=== PATIENT | female | born 1985 | race Caucasian/White ===

== ENCOUNTER → 2020-12-12 10:10 | Outpatient (CLI) | payer BC, SELFPAY ==
[2020-12-12 13:53] LABS: Hemoglobin A1c 5.2 % (3.8-5.6)
[2020-12-12 14:04] LABS: Estradiol 48.4 pg/mL; Follicle Stimulating Hormone 6.3 mIU/mL; Luteinizing Hormone 13.1 mIU/mL; Prolactin 4.2 ng/mL; T4 Free Direct 0.98 ng/dL (0.76-1.46); Thyroid Stim Hormone (TSH) 0.93 uIU/mL (0.358-3.74)
[2020-12-18 10:50] LABS: HPV APTIMA, High Risk Negative (Negative)
[2020-12-18 14:02] LABS: Testosterone Free 3.2 pg/mL (0.0-4.2)
[2020-12-22 10:48] LABS: 17-Hydroxyprogesterone 71 ng/dL (.)
== END ==
PROVIDERS: Visit Provider Student in an Organized Health Care Education/Training Program
DX: Z12.4 Encounter for screening for malignant neoplasm of cervix (principal); N92.6 Irregular menstruation, unspecified
CPT/HCPCS: 36415; 82627; 82670; 83001; 83002; 83036; 83498; 84146; 84402; 84439; 84443; 87624; 88175; 82626; G0145

== ENCOUNTER → 2021-01-13 09:40 | Outpatient (CLI) | payer BC, SELFPAY | PROVIDERS: Visit Provider Student in an Organized Health Care Education/Training Program | DX: E28.1 Androgen excess (principal) | CPT/HCPCS: 36415; 82627; 82626 ==

== ENCOUNTER 2024-04-27 08:30 | Day surgery (SDC) | payer BC, SELFPAY ==
--- NOTE | 2024-04-23 14:38 | PCM.HP.BLA ---
History and Physical Date of Admission: 04/27/24 HPI: The patient is a 39 year old female presenting for pre-operative visit. She is scheduled for Hysteroscopy D&C and polyp resection and IUD insertion, for AUB and endometrial polyp on 04/27/24. Procedure discussed along with risks, benefits and complications. Other alternatives discussed for management. Consent form signed? Yes. PAST MEDICAL HISTORY PAST MEDICAL HISTORY Diagnosis Date ? PCOS (polycystic ovarian syndrome) PAST SURGICAL HISTORY PAST SURGICAL HISTORY Procedure Laterality Date ? ABDOMINAL SURGERY HX ? SECTION HX 2004, 2006 and 2008 ? EGD 12/27/2022 ? EXC TUMOR SOFT TISS NECK/THORAX SUBFASCIAL <5CM 12/31/2021 ? ORTHOPEDIC SURGERY HX Left childhood surgery on the left arm CURRENT MEDICATIONS Current Outpatient Medications Medication Sig Dispense Refill ? buPROPion SR (WELLBUTRIN SR) 150 mg 12 hr tablet Take 1 tablet by mouth two times a day. 60 tablet 2 ? metFORMIN (GLUCOPHAGE) 1,000 mg tablet Take 1 tablet by mouth two times a day with meals. 60 tablet 3 ? medroxyPROGESTERone (PROVERA) 10 mg tablet Take 1 tablet by mouth once daily. 10 tablet 0 ? miSOPROStol (CYTOTEC) 200 mcg tablet insert 2 tablets qhs the am before the procedure 2 tablet 0 ? Cholecalciferol, Vitamin D3, 50 mcg (2,000 unit) cap Take 1 capsule by mouth once daily. 90 capsule 2 ? ferrous sulfate 325 mg (65 mg iron) tablet Take 1 tablet by mouth every other day. 90 tablet 1 No current facility-administered medications for this visit. ALLERGIES: Patient has no known allergies. PERSONAL HISTORY: SOCIAL HISTORY Social History Tobacco Use ? Smoking status: Former Packs/day: 0.50 Years: 2.00 Additional pack years: 0.00 Total pack years: 1.00 Types: Cigarettes ? Smokeless tobacco: Never Vaping Use ? Vaping Use: Never used Substance Use Topics ? Alcohol use: Yes Comment: rare ? Drug use: Never FAMILY HISTORY: FAMILY HISTORY FAMILY HISTORY Problem Relation Age of Onset ? No Known Problems Mother ? No Known Problems Father ? Cancer Maternal Grandmother Stomach ? Cancer Maternal Grandfather Stomach REVIEW OF SYMPTOMS: GENERAL: denies fevers or chills ENDOCRINOLOGY: has not been on steroids Cardiology : denies palpitations or chest pain Respiratory: denies SOB or cough Hematology: denies history of prolonged bleeding or easy bruising or VTE Allergy: Denies history of personal or family history of allergy to anesthesia PHYSICAL EXAMINATION: VITALS: Last menstrual period 11/07/2023. GENERAL: The patient is well nourished, well hydrated in no acute distress. , The patient is oriented to time, place, and person. pelvic US 03/27/24 Uterus Uterus: Visualized Uterus position: anteverted Description of uterine malformations: none Myometrium: heterogeneous Endometrium: possible polyp Cervix details: normal Uterus length 98 mm Uterus width 67 mm Uterus height 49 mm Uterus Vol 166.8 cm? Endometrial thickness, total 6.6 mm Uterine fibroid D1 7 mm Uterine fibroid D2 6 mm Uterine fibroid D3 8 mm Uterine fibroid mean 7.0 mm Uterine fibroid vol 0.178 cm? Uterine fibroids findings: Left lateral posterior wall. intramural Polyps: Polyps identified Uterine polyp D1 4 mm Uterine polyp D2 4 mm Uterine polyp D3 3 mm Uterine polyp mean 3.7 mm Uterine polyp findings: Right lateral wall Right Ovary Rt ovary: Visualized Rt ovary morphology: premenopausal normal follicular Rt ovary D1 40 mm Rt ovary D2 20 mm Rt ovary D3 26 mm Rt ovary Vol 11.0 cm? Rt ovarian cyst(s): No cysts identified Left Ovary Lt ovary: Visualized Lt ovary morphology: premenopausal normal follicular Lt ovary D1 40 mm Lt ovary D2 21 mm Lt ovary D3 25 mm Lt ovary Vol 11.1 cm? Lt ovarian cyst(s): No cysts identified Cul de Sac Visualized. no free fluid visualized IMPRESSION: endometrial polyp, AUB, adenomyosis, IUD inertion PLAN: The risks/benefits/alternatives and personal involved for the planned hysteroscopy D&C with IUD insertion and polyp resection were reviewed with the patient. Her questions were answered to her satisfaction and she desires to proceed. Consent was signed. I reviewed with her postop instructions and expectations. I have reviewed and updated past medical and surgical history, medications and allergies Assessment & Plan Assessment/Plan (1) Abnormal uterine bleeding (AUB): (2) Endometrial polyp: (3) Adenomyosis: (4) Encounter for IUD insertion:
[2024-04-27] VITALS (7 sets, daily range): BP systolic 102–116; BP diastolic 54–71; PULSE 80–100; RESP 16–18; TEMP 36.2–36.4; O2SAT 93–98; BMI 38.0
--- NOTE | 2024-04-27 08:40 | PCM.PRE.AN2 ---
ASA Classification* ASA Classification ASA Classification: 2 Assessment & Plan Anesthesia* Anesthesia Assessment Anesthesia Assessment: Discussed sedation and/or anesthesia options, risks, benefits, and alternatives with patient/parents/legal guardian/POA. Questions invited. The patient/parents/legal guardian/POA seems to understand and agrees to proceed with anesthesia plan. Reviewed the physical assessment, medical history, allergy history and patient home medications list prior to surgery/procedure/anesthetic and documented any changes. Performed airway and anesthesia risk assessments. 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 When Was Last Pacemaker Check QUESTION #4 FULL TEXT: You/Your Family Experience fever (hyperthermia) with Anesthesia Last Oral Intake Last Oral intake: Last Oral Intake NPO since Meds taken in AM with sips of water? Meds patient instructed to take am of surgery PONV PONV - equipment superintendent: PONV - equipment superintendent Female Yes 04/20/24 15:47 HX of Motion Sickness No 04/20/24 15:47 HX of N/V After Surgery No 04/20/24 15:47 Non-Smoker Yes 04/20/24 15:47 Duration of Surgery greater Yes 04/20/24 15:47 than 60 minutes Number of Risk Factors 3 04/20/24 15:47 PONV Score Moderate Risk 04/20/24 15:47 Height & Weight Height & Weight: Anesthesia: Height & Weight Weight: 115.212 kg 04/26/24 07:03 Respiratory Assessment Respiratory Assessment - equipment superintendent: Respiratory Tract Infection Hx - equipment superintendent Hx Respiratory Tract Infection No 04/20/24 15:47 STOP Sleep Apnea STOP Sleep Apnea - equipment superintendent: STOP Sleep Apnea - equipment superintendent Hx Hypertension No 04/20/24 15:47 Hx Sleep Apnea No 04/20/24 15:47 CPAP BIPAP Do you snore loudly (louder No 04/20/24 15:47 than talking or can be heard Do you often feel tired/ No 04/20/24 15:47 fatigued/ sleepy during daytime? Has anyone observed you stop No 04/20/24 15:47 breathing during sleep? STOP Results Negative 04/20/24 15:47 QUESTION #5 FULL TEXT : Do you snore loudly (louder than talking or can be heard through closed doors)? 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 Specify any problems Hx of Preganancy in last 3 No 04/20/24 15:47 Months Nurse Filling Out Transfusion MGRIFFITH 04/20/24 15:47 & Questions: Date: 04/20/24 04/20/24 15:47 Time: 15:49 04/20/24 15:47 Patient unable to answer at this time (ie. confused, unrespo /Reproduction History /Reproductive History - equipment superintendent: /Reproductive Hx- equipment superintendent Hx Now No 04/20/24 15:47 Gestational Age (in weeks): EDC: Hx Hx Para Hx Section SAB No 04/20/24 15:47 Active Medications Active Medications: Current Medications Generic Name Dose Route Start Last Admin Trade Name Freq PRN Reason Stop Dose Admin Acetaminophen 1,000 mg 04/27/24 09:55 Acetaminophen 500 Mg Tablet PO 04/27/24 09:56 PREOP ONE Lactated Ringer's 1,000 mls @ 15 mls/hr 04/27/24 08:45 IV .Q48H TONYA Ketorolac Tromethamine 30 mg 04/27/24 09:55 Ketorolac 30 Mg/Ml Syringe IV 04/27/24 09:56 PREOP ONE Levonorgestrel 1 each 04/27/24 09:55 Levonorgestrel Iud (Liletta) INTRA-UTER 04/27/24 09:56 X1 ONE PFSH Medical History PCOS (polycystic ovarian syndrome) Wears glasses Wears contact lenses Former smoker Home Medications ?Medication ?Instructions ?Recorded ?Last Taken ?Type bupropion HCl 150 mg tablet,12 hr 150 mg PO BID 04/18/24 Unknown History sustained-release ferrous sulfate 325 mg (65 mg 325 mg PO QODAY 04/18/24 Unknown History iron) tablet (FeroSul) metformin 1,000 mg tablet 1,000 mg PO BID 04/18/24 Unknown History Allergy/AdvReac Type Severity Reaction Status Date / Time No Known Allergies Allergy Verified 04/20/24 15:44 Surgical History History of esophagogastroduodenoscopy (EGD) History of surgery on arm History of Social History Smoking Status: Former smoker Review of Systems (Anesthesia) ROS Narrative System reviewed and no additional complaints, except as documented.
[2024-04-27 08:47] LABS: Internal QC Validated? YES +Cl - CLEAR BKGD; Pregnancy, Urine Negative Negative; Record Kit Lot#,Urine Preg HCG0000772476
[2024-04-27] MEDS: Acetaminophen 500 MG Tablet 1000 MG PO (08:49)
[2024-04-27] MEDS: Lactated Ringers 1,000 ML 15 ML IV (08:49)
[2024-04-27] MEDS: Ketorolac 30 MG/ML Syringe IV (08:50)
[2024-04-27 09:18] LABS: Hematocrit 40.2 % (37-47); Mean Corp Hgb Conc 32.3 g/dL (32-36); Mean Corpuscular Hgb 28.3 pg (27.0-32.0); Mean Corpuscular Volume 87.4 fL (81-99); Mean Platelet Vol. 9.3 fl (6.2-12.0); Platelet Count 312 K/mm3 (150-450); RBC Distribution Width SD 44.6 fl (35.1-43.9); White Blood Count 9.4 K/mm3 (4.4-11.0)
--- NOTE | 2024-04-27 09:40 | DCINST_ITS ---
Discharge Instructions Diet Discharge Diet: No restrictions Activity May resume sexual activity in: 2 weeks Lifting Restrictions: none Dressing / Incision Call your doctor if your incision/area has: Sudden Increased Bleeding and Foul Smelling Discharge Call your doctor if you observe: Fever of 101 or Higher and Using more than 1 pad per hour (for 2 hrs in a row) Follow Up Care Please Follow Up With: Tamia Francois MD When: YOu do not need a postop appointment. Call [phone] or send [employer] message to make an appointment or with any concerns. We will contact you next week with your pathology results Test Results: Test results from this visit will be discussed in further detail at your follow- up appointment, if applicable. Discharge Plan Admission Attending Provider: Tamia Francois Primary Care Provider: Dea Palomino NP Instructions Print Language: Citizen Of [place] Discharge Orders/Prescriptions Prescriptions: No Action bupropion HCl 150 mg tablet sustained-release 12 hr 150 mg PO BID ferrous sulfate [FeroSul] 325 mg (65 mg iron) tablet 325 mg PO QODAY metformin 1,000 mg tablet 1,000 mg PO BID Disposition Disposition (needs filled in before D/C Order can be placed): Home, Self Care
--- NOTE | 2024-04-27 09:45 | PCM.OPRPT ---
Problems Associated Problem List Diagnoses (1) Encounter for IUD insertion: (2) Adenomyosis: (3) Endometrial polyp: (4) Abnormal uterine bleeding (AUB): Report of Operation Date of Procedure: 04/27/24 Pre-Operative Diagnosis: adenomyosis, AUB, endometrial polyp Post-Operative Diagnosis: same Surgery/Procedure Performed:: Hysteroscopy D&C with Liletta IUD insertion Description of Surgical Findings:: Normal cervix and vagina, proliferative endometrium. No focal polypoid lesions noted in the endometrium or endocervix. Surgeon: Tamia Francois shot fireman: None Type of Anesthesia: MAC/Supplemental/Local Anesthesiologist: Sasha Melendez Special Medications: none Specimen's removed: Endometrial curetting Drains: none Estimated Blood Loss (mL): 10 Fluids Replaced: 400 Description of Procedure: The patient was taken to the OR where she was prepped and draped in dorsal lithotomy position. The weighted speculum was placed in the vagina and the anterior lip of the cervix was grasped with a single-tooth tenaculum. A paracervical block was administered with [1% lidocaine with 1-100,000 epinephrine solution]. The cervix was dilated serially with Hegar dilators. The Symphion hysteroscope was placed into the uterine cavity and the above findings were noted. Bilateral tubal ostia [were] identified. The hysteroscope was removed and a sharp curettage was done of the endometrium. The Liletta IUD was then inserted in the usual sterile fashion and the uterus sounded to 8 cm. The strings were cut to 2 cm.. The instruments were removed from the vagina. The specimen was handed off and sent to pathology. All sponge and needle counts were correct. Vaginal sweep was performed by me. The patient was awakened and taken to the recovery room in stable condition. Calculated fluid deficit : 50 cc of normal saline Grafts/Implants Used: Lilettat IUD Procedure Start Time: 09:49 Procedure Stop Time: 19:58 Complications none Admit VTE Documentation VTE Present on Admission: No VTE Mechan Device Prophylaxis: SCD's VTE Pharm Prophylaxis ordered?: No Reason prophylaxis not ordered:: Procedure Not Indicated
[2024-04-27] MEDS: Lidocaine 1% /Epi 1:100 (20ml) 20 ML Vial (09:49)
[2024-04-27] MEDS: Levonorgestrel IUD (Liletta) 1 EACH INTRA-UTER (09:50)
--- NOTE | 2024-04-27 09:55 | EMB_PTH ---
PATIENT: MICHELLE AGUILAR [place] [facility] [id number] AGE/SX: 39/F ROOM: RE04/27/[address]: Dr. Tamia Francois MD : [id number] BED: DIS: 04/27/2024 SPEC #: [id number] RECD: 04/27/24 10:50 STATUS: CAROLEE SILVERIO #: [id number] GERMAN: 04/27/24 09:[address]: Tamia Francois DEPT: SURGICAL PATHOLOGY RECD BY: Jose Martin Jameson ENTERED: 04/27/24 11:17 SP TYPE: ENDOM BX/C PATRICIA DR: Dea Palomino, YANEC Tissues: Endometrium, NOS Procedures: Surgery Specimen Level IV HEADER OPERATION: Hysteroscopy, D&C, Symphion, Lietta IUD insertion PRE-OP DIAGNOSIS: Abnormal uterine bleeding, polyp, adenomyoma, IUD TISSUE SUBMITTED: Endometrial curettings MICROSCOPIC DIAGNOSIS Endometrium, curettings: Mild disordered proliferative endometrium. FEDERICA/ 04/30/2024 MICROSCOPIC DESCRIPTION Slides are reviewed. GROSS DESCRIPTION Received in fixative is one container labeled with the patient's name and designated Endometrial curettings. The specimen consists of multiple irregular fragments of pink-hemorrhagic soft tissue mixed with mucoid tissue that in aggregate measure 5.0 x 3.0 x 0.2 cm. The specimen is totally submitted in two cassettes. ADAM/ 04/27/2024 TC:5 CPT:56834
--- NOTE | 2024-04-27 10:05 | PCM.POST.ANE ---
Anesthesia: Postop Eval I Current Vital Signs Temperature: 97.1 F Pulse Rate: 96 Blood Pressure: 107/54 Respiratory Rate: 16 Pulse Ox: 94 Oxygen Delivery Method: Room Air Assessment Airway patent: Yes Spontaneous unlabored respirations: Yes Mental status: Awake and Calm nausea: No Vomiting: No Anesthesia Complication: No Fluid Hydration Crystalloid volume administer (ml): 400 Total IV fluid infused: 400 Progress Note Anesthesia document: Postop Eval 1 completed: Yes
--- NOTE | 2024-04-27 13:04 | POSTOPAN2_ITS ---
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[place] nausea No 04/27/24 10:06 [email or web address] Vomiting No 04/27/24 10:06 ULISES Anesthesia Postop Eval I: Fluid Summary Crystalloid volume administer 400 04/27/24 10:06 ULISES (ml) Colloids volume administered ( ml) Blood Product volume administered (ml) Total IV fluid infused 400 04/27/24 10:06 ULISES Anesthesia Postop Eval I: Summary Notes Anesthesia Complication No 04/27/24 10:06 ULISES Anesthesia Complication Comment: Post-operative progress note Anesthesia: Postop Eval II Evaluation Mental status: Awake and Calm Pain Level: 1 nausea: No Vomiting: No Complications Anesthesia Complication: No
== END 2024-04-27 10:56 | disposition home or self-care (01) ==
LOC: SDC 08:35 → AC 10:05
PROVIDERS: Anesthesiology; PCP Internal Medicine; Referring Provider Obstetrics & Gynecology; Visit Provider Obstetrics & Gynecology
PROC: 0UB98ZZ Excision of Uterus, Via Natural or Artificial Opening Endoscopic (ICD-10-PCS; CPT 58558; principal; 2024-04-27 09:40)
DX: N80.03 Adenomyosis of the uterus (principal); N93.9 Abnormal uterine and vaginal bleeding, unspecified; N84.0 Polyp of corpus uteri; E28.2 Polycystic ovarian syndrome; Z87.891 Personal history of nicotine dependence; Z30.430 Encounter for insertion of intrauterine contraceptive device; Z79.84 Long term (current) use of oral hypoglycemic drugs; Z79.899 Other long term (current) drug therapy
CPT/HCPCS: 58558; 58300; 81025; 85027; 88305; J7120; J2405

== ENCOUNTER 2024-12-18 19:50 | Emergency (ER) | payer BC, SELFPAY ==
[2024-12-18 19:52] VITALS: BP 131/73; PULSE 90; RESP 18; TEMP 35.9; O2SAT 98
--- NOTE | 2024-12-18 20:03 | RAD_ITS ---
PROCEDURE: TIBIA FIBULA 2 VIEWS 12/18/2024 REASON FOR EXAM: INJURY TECHNIQUE: 2 view(s) of right tibia and fibula COMPARISON: None FINDINGS: RIGHT TIBIA / FIBULA: No acute fracture. Focal bony exuberance at the posterior distal tibial malleolus may be sequela of remote injury. RAD/Tibia & Fibula 2 Views IMPRESSION: No acute fracture. Focal bony exuberance at the posterior distal tibial malleo mandie may be sequela of remote injury. Reading Location: [id number]
--- NOTE | 2024-12-18 20:03 | RAD_ITS ---
PROCEDURE: FOOT MIN 3 VIEWS 12/18/2024 REASON FOR EXAM: INJURY TECHNIQUE: 3 view(s) of right foot COMPARISON: None FINDINGS: RIGHT FOOT: No fracture or dislocation. The joint spaces appear within limits. Suggestion of soft tissue swelling dorsal foot and anterior ankle. RAD/Foot min 3 Views IMPRESSION: No fracture or dislocation identified. Suggestion of soft tissue swelling dorsa l foot and anterior ankle. Reading Location: [id number]
--- NOTE | 2024-12-18 20:27 | EDS_ITS ---
HPI History of Present Illness Chief Complaint: Lower Extremity Injury Informant: patient Narrative Narrative: 39-year-old female presenting to the emergency room with right foot pain and swelling. Patient states that several days ago she fell causing plantarflexion of the foot. She notes bruising and swelling over the anterior aspect of the foot that seems to be worsening and spreading. She notes some discomfort up onto the right tibial region of her leg. She is finding it increasingly difficult to bear weight. PFSH PFSH Medical History PCOS (polycystic ovarian syndrome) Wears glasses Wears contact lenses Former smoker Home Medications ?Medication ?Instructions ?Recorded ?Last Taken ?Type bupropion HCl 150 mg tablet,12 hr 150 mg PO BID Unknown History sustained-release ferrous sulfate 325 mg (65 mg 325 mg PO QODAY 04/18/24 Unknown History iron) tablet (FeroSul) metformin 1,000 mg tablet 1,000 mg PO BID 04/18/24 Unk nown History fluoxetine 10 mg capsule 10 mg PO DAILY 12/18/24 Unkn own History Allergy/AdvReac Type Severity Reaction Status Date / Time No Known Allergies Allergy Verified 12/18/24 19:50 Surgical History History of esophagogastroduodenoscopy (EGD) History of surgery on arm History of Social History Smoking Status: Former smoker ROS ROS ED Constitutional Constitutional ED: Denies chills, fever(s) or weight loss Eyes Eyes: Denies change in vision or diplopia ENT ENT ED: Denies ear pain, rhinorrhea or sore throat Cardiovascular Cardiovascular: Denies chest pain, orthopnea, palpitations or racing heartbeat Respiratory/Chest Respiratory/Chest: Denies cough, dyspnea or orthopnea Gastrointestinal Gastrointestinal: Denies abdominal pain, diarrhea, nausea or vomiting Genitourinary Genitourinary ED: Denies dysuria, hematuria or urinary frequency Musculoskeletal Musculoskeletal: Reports other Details: See history of present illness ; Denies arthralgias or myalgias Integumentary Denies abscess or rash Neurologic Neurologic: Denies headache(s) or weakness Psychiatric Psychiatric: Denies anxiety, depression, suicidal ideation or suicidal thoughts Endocrine Endocrinology: Denies polydipsia, polyphagia or polyuria Allergic/Immunologic Allergic/Immunologic ED: Denies mouth swelling, tongue swelling or urticaria EXAM Physical Exam Const Vital Signs: 12/18/24 19:52 Temperature 96.6 F L Temperature Source Temporal Pulse Rate 90 Respiratory Rate 18 Blood Pressure 131/73 H Blood Pressure Mean 92 Pulse Ox 98 Oxygen Delivery Method Room Air Positive well nourished and well developed General Appearance ED: well developed and NAD HEENT Reports normocephalic, head/scalp atraumatic and moist mucous membranes Eyes PERRL and EOMs intact bilaterally Neck no lymphadenopathy, supple and no JVD Resp normal respiratory effort and clear to auscultation bilaterally Cardio regular rate, regular rhythm and no murmurs GI normal to inspection, nondistended, normoactive bowel sounds and non-tender Palpation: soft Back/Spine no CVA tenderness and normal ROM Extremity Extremity Narrative: There is ecchymosis noted over the dorsal surface of the foot extending up to the level of the malleoli and down to the MTP joints. Neurovascular she is intact. There is less than 2-second capillary refill of the toes there is associated swelling. There is mild tenderness over the anterior tibia as well as proximal fibula. General Extremety ED: Negative for edema General Extremity: Negative for edema Neuro oriented x3 and CN's II-XII intact bilaterally Sensorium / Orientation: alert Motor Exam: strength 5/5 throughout Psych mental status grossly normal Mood & Affect: Negative for depressed or tearful Skin no rashes or lesions noted and no wounds MDM MDM MDM Narrative Medical decision making narrative: Differential diagnosis includes but not limited to fracture sprain strain neurovascular injury hematoma My independent interpretation of plain films of the right tib-fib x-rays is no acute fracture. Plan of interpretation of the plain films of the right foot is no acute fracture. Patient will continue to ice ibuprofen crutches as needed. Would recommend Cruzito wrap and weightbearing as tolerated. Follow-up 10 to 14 days with orthopedics if not improved. History & Record Review Discussion w/independent historian: Patient Radiography Diagnostic Testing: Clinical Impression(s) from Imaging Studies Foot X-Ray 12/18/24 20:03 IMPRESSION: No fracture or dislocation identified. Suggestion of soft tissue swelling dorsal foot and anterior ankle. Reading Location: [id number] Tibia/Fibula X-Ray 12/18/24 20:03 IMPRESSION: No acute fracture. Focal bony exuberance at the posterior distal tibial malleolus may be sequela of remote injury. Reading Location: [facility] Discharge Plan Triage Chief Complaint: Lower Extremity Injury ED Provider: Avery Gonzalez Dx/Rx/DC Orders Clinical Impression: Right foot sprain, Acute pain of right foot Instructions: ED Foot Sprain Prescriptions: No Action bupropion HCl 150 mg tablet sustained-release 12 hr 150 mg PO BID ferrous sulfate [FeroSul] 325 mg (65 mg iron) tablet 325 mg PO QODAY metformin 1,000 mg tablet 1,000 mg PO BID fluoxetine 10 mg capsule 10 mg PO DAILY Primary Care Provider: Dea Palomino NP Referrals: Gavin Vann DO [Med Staff - Active Staff] - 10-14 Days if not better Dea Palomino NP, [employer]-[facility] [Primary Care Provider] - Print Language: [place]an Disposition Disposition: Home, Self Care
[2024-12-18 20:52] VITALS: BP 128/79; PULSE 81; RESP 18; TEMP 35.9; O2SAT 98
== END 2024-12-18 20:54 | disposition home or self-care (01) ==
PROVIDERS: Emergency Provider Emergency Medicine; PCP Internal Medicine; Visit Provider Emergency Medicine
DX: S93.601A Unspecified sprain of right foot, initial encounter (principal); E28.2 Polycystic ovarian syndrome; Z87.891 Personal history of nicotine dependence; Z79.899 Other long term (current) drug therapy; Z79.84 Long term (current) use of oral hypoglycemic drugs; W19.XXXA Unspecified fall, initial encounter
CPT/HCPCS: 73590; 73630; 99283